=== PATIENT | female | born 1975 | race Hispanic/Latino ===

== ENCOUNTER 2016-04-06 08:11 | Outpatient (CLI) | payer BC, MEDICARE ==
--- NOTE | 2016-04-06 15:59 | Mammography Report ---
BILATERAL DIGITAL SCREENING MAMMOGRAM with CAD: 04/06/16 08:11:00 CLINICAL: Routine screening.Bilateral reduction mammoplasty has been performed since the prior exam. COMPARISON:07/16/14 FINDINGS: The breasts are predominantly fatty with scattered bilateral fibroglandular densities.New right asymmetries and architectural distortion require additional imaging. The left breast is negative. IMPRESSION: Right asymmetries and architectural distortion requiring additional imaging. BI-RADS CATEGORY: 0 -- Needs Additional Imaging RECOMMENDATION: Recall for right spot compression views and right breast ultrasound if needed.. COMMENT: Patient follow-up letters are generated by our [employer] application.
--- NOTE | 2016-04-06 16:05 | Ultrasound Report ---
RIGHT UPPER QUADRANT ABDOMINAL ULTRASOUND: 04/06/16 08:11:00 CLINICAL: Right upper quadrant abdominal pain. FINDINGS: High-resolution ultrasound demonstrated enlarged liver with moderate diffuse increased echogenicity.. No liver mass. Small hepatic veins and portal veins. Normal gallbladder and bile ducts. The gall bladder wall measures 2.0 mm in thickness. The common bile duct measures 3.2 mm diameter. The pancreas is diffusely enlarged and echogenic. No pancreatic mass or fluid collection. Normal upper abdominal aorta. The right kidney is normal and measures 10.8 x 4.6 x 5.0cm. No ascites or mass. IMPRESSION: 1. Moderate hepatic steatosis and hepatomegaly. 2. Pancreatic steatosis. 3. No cholelithiasis and no signs of acute cholecystitis.
== END 2016-04-06 08:12 | disposition home or self-care (01) ==
LOC: SPVWC 08:11
PROVIDERS: ATTEND Internal Medicine
DX: Z12.31 Encounter for screening mammogram for malignant neoplasm of breast (principal); R16.0 Hepatomegaly, not elsewhere classified; K76.0 Fatty (change of) liver, not elsewhere classified; Q45.3 Other congenital malformations of pancreas and pancreatic duct; R10.11 Right upper quadrant pain
CPT/HCPCS: 76705; G0202; 77067

== ENCOUNTER 2016-05-19 10:13 | Outpatient (CLI) | payer BC, MEDICARE ==
--- NOTE | 2016-05-19 11:14 | Ultrasound Report ---
RIGHT DIGITAL DIAGNOSTIC MAMMOGRAM : 05/19/16 10:13:00 CLINICAL: Recalled for asymmetries. COMPARISON:04/06/16 screening FINDINGS: Lateralmedial and spot compression MLO and CC views were performed. The asymmetry effaces with spot compression and is consistent with a scar. However, a 5 mm oval circumscribed density in the outer breast is identified on all views. Ultrasound of the outer right breast was performed and demonstrated a 5 x 4 x 4 mm benign cyst at 8 o'clock 7 cm from the nipple. It correlates with the mammographic density. No solid mass. IMPRESSION: Benign scar and a benign 5 mm cyst at 8 o'clock. BI-RADS CATEGORY: 2 - - Benign RECOMMENDATION: Routine mammographic screening in one year. ACR BI-RADS MAMMOGRAPHIC CODES: 0 = Needs additional imaging evaluation; 1 = Negative; 2 = Benign; 3 = Probably benign; 4 = Suspicious; 5 = Malignant; 6 = Known biopsy-proven malignancy COMMENT: 1. Dense breast tissue, i.e., adenosis, fibrocystic changes, etc., may obscure an underlying neoplasm. 2. Approximately 10% of cancers are not detected with mammography. 3. A negative mammography report should not delay biopsy if a clinically suspicious mass is present. COMMENT: Patient follow-up letters are generated via our [employer] application.
== END 2016-05-19 10:14 | disposition home or self-care (01) ==
LOC: SPVWC 10:13
PROVIDERS: ATTEND Nurse Practitioner
DX: N60.01 Solitary cyst of right breast (principal)
CPT/HCPCS: 76642; G0206

== ENCOUNTER 2017-06-19 10:30 | Outpatient (CLI) | payer BC, MEDICARE ==
--- NOTE | 2017-06-20 13:24 | Mammography Report ---
BILATERAL DIGITAL SCREENING MAMMOGRAM with CAD: 06/19/17 10:30:00 CLINICAL: Routine screening.History of bilateral reduction mammoplasty. COMPARISON:05/19/16 and 04/06/16 FINDINGS: The breasts are predominantly fatty with scattered bilateral fibroglandular densities. A right central posterior focal asymmetry requires additional imaging.The left breast is negative. IMPRESSION: Right asymmetry requiring further workup. BI-RADS CATEGORY: 0 -- Additional Imaging Evaluation Required RECOMMENDATION: Recall for right lateralmedial , spot compression CC and MLO views and right breast ultrasound if needed. ACR BI-RADS MAMMOGRAPHIC CODES: 0 = Needs additional imaging evaluation; 1 = Negative; 2 = Benign; 3 = Probably benign; 4 = Suspicious; 5 = Malignant; 6 = Known biopsy-proven malignancy COMMENT: 1. Dense breast tissue, i.e., adenosis, fibrocystic changes, etc., may obscure an underlying neoplasm. 2. Approximately 10% of cancers are not detected with mammography. 3. A negative mammography report should not delay biopsy if a clinically suspicious mass is present. COMMENT: Patient follow-up letters are generated via our [employer] application.
== END 2017-06-19 10:31 | disposition home or self-care (01) ==
LOC: SPVWC 10:30
PROVIDERS: ATTEND Internal Medicine
DX: Z12.31 Encounter for screening mammogram for malignant neoplasm of breast (principal); Z98.890 Other specified postprocedural states
CPT/HCPCS: 77067

== ENCOUNTER 2017-07-19 09:53 | Outpatient (CLI) | payer BC, MEDICARE ==
--- NOTE | 2017-07-19 15:52 | Ultrasound Report ---
RIGHT DIGITAL DIAGNOSTIC MAMMOGRAM and RIGHT BREAST ULTRASOUND: 07/19/17 09:53:00 CLINICAL: Recalled for asymmetry. COMPARISON:07/19/17 screening FINDINGS: ML and spot compression MLO and CC views were performed. A retroareolar posterior asymmetry persists on all views. It appears to have a circumscribed margin with an oval shape on the CC spot. Ultrasound of the right breast was performed and demonstrated an island of heterogeneous predominantly hyperechoic fibroglandular structures in the retroareolar posterior breast adjacent to the pectoral muscle. It produces mild shadowing and correlates with the mammographic asymmetry. According to the patient, she has a history of a seroma in this area that developed after breast reduction. IMPRESSION: Benign asymmetric breast parenchyma no suspicious finding. BI-RADS CATEGORY: 2 - - Benign RECOMMENDATION: Routine mammographic screening in one year. ACR BI-RADS MAMMOGRAPHIC CODES: 0 = Needs additional imaging evaluation; 1 = Negative; 2 = Benign; 3 = Probably benign; 4 = Suspicious; 5 = Malignant; 6 = Known biopsy-proven malignancy COMMENT: 1. Dense breast tissue, i.e., adenosis, fibrocystic changes, etc., may obscure an underlying neoplasm. 2. Approximately 10% of cancers are not detected with mammography. 3. A negative mammography report should not delay biopsy if a clinically suspicious mass is present. COMMENT: Patient follow-up letters are generated via our [employer] application.
== END 2017-07-19 09:54 | disposition home or self-care (01) ==
LOC: SPVWC 09:53
PROVIDERS: ATTEND Internal Medicine
DX: N64.89 Other specified disorders of breast (principal); R92.8 Other abnormal and inconclusive findings on diagnostic imaging of breast

== ENCOUNTER 2018-08-30 10:56 | Outpatient (CLI) | payer BC, MEDICARE ==
--- NOTE | 2018-08-30 11:29 | Mammography Report ---
Screening mammogram: Patient with bilateral breast reduction. Asymmetric densities are identified in the posterior mid right breast. Mild architectural distortion identified in both breasts. These findings are essentially unchanged compared to exams dating back to 2017. No currently suspicious findings. CAD used Impression: Stable exam. Recommendation: Annual mammogram followup. BI-RADS CATEGORY: 2 = Benign ACR BI-RADS MAMMOGRAPHIC CODES: 0 = Needs additional imaging evaluation; 1 = Negative; 2 = Benign; 3 = Probably benign; 4 = Suspicious; 5 = Malignant; 6 = Known biopsy-proven malignancy COMMENT: 1. Dense breast tissue, i.e., adenosis, fibrocystic changes, etc., may obscure an underlying neoplasm. 2. Approximately 10% of cancers are not detected with mammography. 3. A negative mammography report should not delay biopsy if a clinically suspicious mass is present.
== END 2018-08-30 10:57 | disposition home or self-care (01) ==
LOC: SPVWC 10:56
PROVIDERS: ATTEND Family Medicine
DX: Z12.31 Encounter for screening mammogram for malignant neoplasm of breast (principal); K21.9 Gastro-esophageal reflux disease without esophagitis; E66.9 Obesity, unspecified; Z90.89 Acquired absence of other organs
CPT/HCPCS: 77067

== ENCOUNTER 2019-11-06 15:56 | Outpatient (CLI) | payer BC, MEDICARE ==
--- NOTE | 2019-11-06 16:47 | Mammography Report ---
DIGITAL SCREENING MAMMOGRAM WITH CAD, 11/06/2019 INDICATION: Routine screening mammography. SCREENING TECHNIQUE: Digital bilateral 2D mammography was obtained in the craniocaudal and mediolateral obliq ue projections. This examination was interpreted with the benefit of Computer-Aided Detection analysi s. COMPARISON: 08/30/2018 FINDINGS: Breast Density: There are scattered areas of fibroglandular density. There is no evidence of dominant mass, suspicious calcifications or architectural distortion in eithe r breast. Stable bilateral mammoplasty change, as well as right-sided nodularity/asymmetry. IMPRESSION: Follow up recommendation: Routine yearly BI-RADS Category 2: Benign. A "normal" or negative report should not discourage follow up or biopsy of a clinically significant f inding. A written summary of these findings will be mailed to the patient. The patient will be entered into a mammography reporting system which will generate a reminder letter for the patient's next appointmen t at the appropriate interval. [employer] recommends yearly mammograms starting at age 40 and continuing as l kamille as a woman is in good health. Breast MRI is recommended for women with an approximate 20-25% or greater lifetime risk of breast cancer, including women with a strong family history of breast or ova thalia cancer or who have been treated for Hodgkin's disease. Signer Name: Luis Kaminski MD Signed: 11/06/2019 4:42 PM Workstation Name: [id number]
== END 2019-11-06 15:57 | disposition home or self-care (01) ==
LOC: SPVWC 15:56
PROVIDERS: ATTEND Family Medicine
DX: Z12.31 Encounter for screening mammogram for malignant neoplasm of breast (principal); N64.89 Other specified disorders of breast
CPT/HCPCS: 77067